=== PATIENT | male | born 1985 | race African-American/Black ===

== ENCOUNTER 2018-06-20 10:28 | Inpatient (IN) | payer OTHER ==
[~2018-06-20] VITALS: Ht 160 cm; Wt 63.6 kg
[2018-06-20] MEDS ORDERED: LISI-661 PO (11:06)
[2018-06-20] MEDS ORDERED: TUBERCULIN, PURIFIED PROTEIN DERIVATIVE 5 TU/0.1 ML SYG ID ONE (12:30)
[2018-06-20] MEDS ORDERED: ACETAMINOPHEN 325 MG TABLET PO PRN (12:30)
[2018-06-20] MEDS ORDERED: GuaiFENesin/D-METHORPHAN [SUGAR-FREE] 200-20MG/10 ML SYRUP UDCUP PO PRN (12:30)
[2018-06-20] MEDS ORDERED: LOPERAMIDE HCL 2 MG CAPSULE PO PRN (12:30)
[2018-06-20] MEDS ORDERED: MAG HYDROX/AL HYDROX/SIMETH ES 30 ML SUSPENSION UDCUP PO PRN (12:30)
[2018-06-20] MEDS ORDERED: PROMETHAZINE HCL 25 MG TABLET PO PRN (12:30)
[2018-06-20] MEDS ORDERED: MAGNESIUM HYDROXIDE SUSPENSION 30 ML UDCUP PO PRN (12:30)
[2018-06-20] MEDS: LORazepam 2 MG TABLET PO PRN (13:45)
[2018-06-20] MEDS: HydrOXYzine PAMOATE 50 MG CAPSULE PO PRN (13:45)
[2018-06-20] MEDS: QUEtiapine FUMARATE 100 MG TABLET PO PRN (13:45)
[2018-06-20] MEDS: THIAMINE HCL 100 MG TABLET PO SCH (17:00)
[2018-06-20] MEDS ORDERED: MIRTAZAPINE 15 MG TABLET PO SCH (21:00)
[2018-06-21 08:00] VITALS: BP 133/79
[2018-06-21] MEDS: GuanFACINE HCL 1 MG TABLET PO SCH ×4 (09:00→16:15)
[2018-06-21] MEDS: FOLIC ACID 1 MG TABLET PO SCH ×2 (09:00→10:00)
[2018-06-21] MEDS: BuPROPion HCL XL 150 MG ER TABLET PO SCH ×2 (09:00→10:00)
[2018-06-21] MEDS: MULTIVITAMINS WITH MINERALS, THERAPEUTIC TABLET PO SCH ×2 (09:00→10:00)
[2018-06-21] MEDS: THIAMINE HCL 100 MG TABLET PO SCH ×3 (09:00→16:14)
[2018-06-21] MEDS: NALTREXONE HCL 50 MG TABLET PO SCH ×2 (09:00→10:00)
[2018-06-21] MEDS: LORazepam 2 MG TABLET PO PRN (09:59)
[2018-06-21] MEDS: HydrOXYzine PAMOATE 50 MG CAPSULE PO PRN (09:59)
[2018-06-21] MEDS: QUEtiapine FUMARATE 100 MG TABLET PO PRN (10:00)
[2018-06-21] MEDS: ZOLPIDEM TARTRATE 10 MG TABLET PO PRN (20:55)
[2018-06-22] MEDS: MULTIVITAMINS WITH MINERALS, THERAPEUTIC TABLET PO SCH (08:50)
[2018-06-22] MEDS: NALTREXONE HCL 50 MG TABLET PO SCH (08:50)
[2018-06-22] MEDS: THIAMINE HCL 100 MG TABLET PO SCH ×2 (08:50→16:29)
[2018-06-22] MEDS: GuanFACINE HCL 1 MG TABLET PO SCH ×3 (08:50→16:28)
[2018-06-22] MEDS: FOLIC ACID 1 MG TABLET PO SCH (08:50)
[2018-06-22] MEDS: BuPROPion HCL XL 150 MG ER TABLET PO SCH (08:51)
[2018-06-22] MEDS: LORazepam 2 MG TABLET PO PRN ×2 (10:29→16:29)
[2018-06-22] MEDS: ZOLPIDEM TARTRATE 10 MG TABLET PO PRN (20:20)
[2018-06-22 21:58] VITALS: BP 142/96
[2018-06-23] MEDS: THIAMINE HCL 100 MG TABLET PO SCH (08:53)
[2018-06-23] MEDS: NALTREXONE HCL 50 MG TABLET PO SCH (08:53)
[2018-06-23] MEDS: MULTIVITAMINS WITH MINERALS, THERAPEUTIC TABLET PO SCH (08:53)
[2018-06-23] MEDS: FOLIC ACID 1 MG TABLET PO SCH (08:53)
[2018-06-23] MEDS: GuanFACINE HCL 1 MG TABLET PO SCH (08:53)
[2018-06-23] MEDS: BuPROPion HCL XL 150 MG ER TABLET PO SCH (08:54)
[2018-06-23 09:23] VITALS: BP 137/97
[2018-06-23] MEDS ORDERED: GUAN1TAB22 PO (09:45)
[2018-06-23] MEDS ORDERED: MULT-723 PO (09:45)
[2018-06-23] MEDS ORDERED: FOLI1 PO (09:45)
[2018-06-23] MEDS ORDERED: THIA100T67 PO (09:45)
[2018-06-23] MEDS ORDERED: BUPR-93 PO (09:49)
[2018-06-23] MEDS ORDERED: NALT50TA6 PO (09:49)
== END 2018-06-23 11:15 | disposition home or self-care (01) | DRG 885 ==
LOC: EMS 10:28 → 3EC 16:09
PROVIDERS: ADMIT Psychiatry & Neurology Psychiatry; ATTEND Psychiatry & Neurology Psychiatry
DX: F33.9 Major depressive disorder, recurrent, unspecified (principal); F12.90 Cannabis use, unspecified, uncomplicated; I10 Essential (primary) hypertension; F17.200 Nicotine dependence, unspecified, uncomplicated; Z82.0 Family history of epilepsy and other diseases of the nervous system; Z82.49 Family history of ischemic heart disease and other diseases of the circulatory system; Z91.19 Patient's noncompliance with other medical treatment and regimen; Z79.899 Other long term (current) drug therapy
CPT/HCPCS: 99285